=== PATIENT | male | born 1955 | race Caucasian/White ===

== ENCOUNTER 2020-08-11 12:27 | Outpatient (CLI) | payer OTHER | END 2020-08-11 23:59 | disposition home or self-care (01) | LOC: WOUND 12:27 | PROVIDERS: ATTEND Family Medicine | DX: S61.411A Laceration without foreign body of right hand, initial encounter (principal); E03.9 Hypothyroidism, unspecified; G47.30 Sleep apnea, unspecified; A69.20 Lyme disease, unspecified; F32.9 Major depressive disorder, single episode, unspecified; Z85.828 Personal history of other malignant neoplasm of skin; W18.39XA Other fall on same level, initial encounter; Y93.89 Activity, other specified; Y92.89 Other specified places as the place of occurrence of the external cause; Y99.8 Other external cause status | CPT/HCPCS: 97597; 99203; 99213 ==

== ENCOUNTER → 2020-08-18 | Outpatient (CLI) | payer OTHER | END | disposition home or self-care (01) | LOC: WOUND 10:56 | PROVIDERS: ATTEND Family Medicine | DX: S61.411D Laceration without foreign body of right hand, subsequent encounter (principal); E03.9 Hypothyroidism, unspecified; A69.20 Lyme disease, unspecified; G47.30 Sleep apnea, unspecified; F32.9 Major depressive disorder, single episode, unspecified; Z85.828 Personal history of other malignant neoplasm of skin; W18.39XD Other fall on same level, subsequent encounter | CPT/HCPCS: 99213 ==